=== PATIENT | male | born 1995 | race Caucasian/White ===

== ENCOUNTER → 2022-04-04 09:56 | Outpatient (CLI) | payer OTHER, SELFPAY ==
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
== END ==
PROVIDERS: PCP Nurse Practitioner Family; Visit Provider Nurse Practitioner Family
DX: M25.561 Pain in right knee (principal)
CPT/HCPCS: 73562

== ENCOUNTER → 2022-04-06 11:54 | Outpatient (CLI) | payer OTHER, SELFPAY ==
--- NOTE | 2022-04-06 12:01 | XR_ITS ---
FINAL REPORT CLINICAL HISTORY: OPEN FRACTURE OF LEFT WRIST FINDINGS: LEFT WRIST Three views demonstrate fractures of the distal radius and ulna. A screw plate extends from the 3rd metacarpal to the distal radius. There is some presumed callus formation at the distal radius. The soft tissues are unremarkable. IMPRESSION: Fractures of the distal radius and ulna with some presumed callus formation at the distal radius. Reviewed, Interpreted and Dictated by Tyler Rhodes III, MD Transcribed by Yuki San Authenticated and [facility]
== END ==
PROVIDERS: PCP Family Medicine; Visit Provider Nurse Practitioner Family
DX: S62.102D Fracture of unspecified carpal bone, left wrist, subsequent encounter for fracture with routine healing (principal)
CPT/HCPCS: 73110

== ENCOUNTER 2022-06-20 13:00 | Outpatient (RCR) | payer OTHER, SELFPAY | END 2022-06-20 13:05 | disposition home or self-care (01) | LOC: PT 13:00 | PROVIDERS: PCP Family Medicine; Visit Provider Nurse Practitioner Family | DX: M25.561 Pain in right knee (principal); S32.82XA Multiple fractures of pelvis without disruption of pelvic ring, initial encounter for closed fracture; S52.91XA Unspecified fracture of right forearm, initial encounter for closed fracture | CPT/HCPCS: 97110; 97163; 97164; 97530 ==

== ENCOUNTER 2022-07-04 14:00 | Outpatient (RCR) | payer OTHER, SELFPAY | END 2022-07-04 14:05 | disposition home or self-care (01) | LOC: OT 14:00 | PROVIDERS: PCP Family Medicine; Visit Provider Nurse Practitioner Family | DX: M25.611 Stiffness of right shoulder, not elsewhere classified (principal); S32.82XA Multiple fractures of pelvis without disruption of pelvic ring, initial encounter for closed fracture; S52.91XA Unspecified fracture of right forearm, initial encounter for closed fracture | CPT/HCPCS: 97110; 97140; 97164; 97166 ==

== ENCOUNTER 2022-10-16 14:00 | Outpatient (RCR) | payer OTHER, SELFPAY | END 2022-10-16 15:00 | disposition home or self-care (01) | LOC: OT 14:00 | PROVIDERS: PCP Family Medicine; Visit Provider Orthopaedic Surgery Orthopaedic Trauma | DX: S62.102D Fracture of unspecified carpal bone, left wrist, subsequent encounter for fracture with routine healing (principal); R10.2 Pelvic and perineal pain; M25.532 Pain in left wrist; G89.29 Other chronic pain; M25.531 Pain in right wrist | CPT/HCPCS: 97110; 97140; 97164; 97166; 97530 ==

== ENCOUNTER 2022-10-19 04:11 | Emergency (ER) | payer OTHER, SELFPAY ==
--- NOTE | 2022-10-19 04:16 | PC.NURSE ---
patient in bathroom obtaining urine for specimen collection
[2022-10-19 04:21] VITALS: BP 149/90; PULSE 85; RESP 16; TEMP 36.6; O2SAT 98; BMI 32.5
--- NOTE | 2022-10-19 04:28 | HMH.EDGENADL ---
Discharge Plan Disposition Patient Disposition: Home, Self-Care Condition: Good Prescriptions Prescriptions: New Pepcid Complete 10-800-165 mg tablet,chewable 1 tab PO BID Qty: 60 0RF No Action ondansetron 4 MG tablet,disintegrating 4 mg PO Q8HP PRN (Reason: Nausea) Qty: 20 0RF Referrals Follow up/Referrals: Laura Valadez MD [Primary Care Provider] - See instructions Activity Restrictions/Add. Instructions Additional Instructions/Restrictions: Return the emergency department for worsening pain vomiting or any other concerns within the next 8 hours. Take medicine as needed for abdominal pain. Follow-up with your primary care physician for ultrasound and further testing Clinical Impressions Clinical Impression: Gastritis Instructions Patient Instructions: DI for Acute Abdominal Pain Discharge ED Provider: Tono Bailey General Adult HPI General Chief complaint: Abdominal Pain Stated complaint: Abdominal Pain,N/V Time Seen by Provider: 10/19/22 04:15 Mode of Arrival: Family Vehicle Source of Information: Patient Limitations: No Limitations Description of Symptoms (Recalled from ER Triage Doc. by RN): 32 yo male presents with chief complaint mid-epigastric pain that he describes as intense and stabbing and brought tears to my eyes . PMH includes 'gallbladder flare up'. Last meal was from [employer]. Patient denies any meds or currently treated issues. A small amount of nausea with the pain, but no actual emesis. Afebrile. No contacts. History of Present Illness HPI narrative: 32-year-old male presents with sudden onset epigastric pain tonight. He was feeling well when he went to bed without any pain or any concerns. Has not had fever or chills recently no nausea or vomiting. But then he had sudden onset intense pain to his abdomen. He says that the pain is a lot better now he does have history of gallbladder disease. No dysuria or hematuria. No flank pain no radiation of the pain to his back or anywhere else no chest pain Related Data Previous Rx's Medication Instructions Recorded ondansetron 4 mg disintegrating 4 mg PO Q8HP PRN Nausea ##20 11/01/18 tablet famotidine-Ca carb-mag hydrox 10 1 tab PO BID #60 tabs 10/19/22 mg-800 mg-165 mg chewable tablet (Pepcid Complete) Allergies Allergy/AdvReac Type Severity Reaction Status Date / Time No Known Allergies Allergy Verified 11/01/18 16:12 [facility] Disclaimer: The information contained in this section may have been updated after the patient was seen, as this information can be updated by other users. Social History Smoking Status: Never smoker alcohol intake: never current occupational status: employed Travel in the last 8 weeks: None household members: family ROS Obtained: Yes All systems reviewed & no additional complaints except as documented Constitutional Constitutional: Denies fatigue, Denies fever(s) and Denies headache(s) Eyes Eyes: Denies itchy eyes ENT Ears, Nose, Mouth, and Throat: Denies headache(s) and Denies lip swelling Cardiovascular Cardiovascular: Denies dyspnea Respiratory Respiratory: Denies dyspnea Gastrointestinal Gastrointestingal: Denies diarrhea or hematemesis Genitourinary Male Genitourinary: Denies flank pain Musculoskeletal Musculoskeletal: Denies muscle cramps Integumentary/Breasts Skin/Breast: Denies rash Neurologic Neurologic: Denies headache(s) Endocrine Endocrine: Denies fatigue Hematologic/Lymphatic Henatologic/Lymphatic: Denies easy bleeding Allergic/Immunologic Allergic/Immunologic: Denies itchy eyes and Denies lip swelling Physical Exam General General appearance: alert and in no apparent distress Eye Eye exam: Present PERRL and EOMI ENT ENT exam: Present normal exam and normal oropharynx Neck Neck exam: Present normal inspection Chest Chest inspection: Present symmetric chest wall rise Respiratory Respiratory e
[2022-10-19 04:33] LABS: Basophils # 0.1 K/mm3 (0-0.2); Basophils % 0.8 % (0.1-2.0); Eosinophils # 0.3 K/mm3 (0.0-0.4); Eosinophils % 4.1 % (0.1-12.0); Hematocrit 48.8 % (42.0-52.0); Hemoglobin 15.8 g/dL (14.1-18.0); Lymphocytes # 1.3 K/mm3 (0.7-4.5); Lymphocytes % 21.7 % (10-50); Mean Corpuscular HGB Conc 32.4 g/dL (31.8-35.4); Mean Corpuscular Hemoglobin 28.9 pg (27.0-31.2); Mean Platelet Volume 8.7 fl (7.4-10.4); Monocytes # 0.4 K/mm3 (0.1-1.0); Monocytes % 6.6 % (1.7-9.3); Neutrophils # 4.1 K/mm3 (1.8-7.8); Neutrophils % 66.8 % (37.0-80.0); Platelet Count 200 K/mm3 (142-424); Red Blood Count 5.49 M/mm3 (4.60-6.20); Red Cell Distribution Width 13.5 % (11.5-17.5); White Blood Count 6.2 K/mm3 (4.8-10.8)
[2022-10-19 04:35] LABS: Chloride 108 mmol/L (98-107); Potassium 4.1 mmoL/L (3.5-5.1); Sodium 143 mmol/L (136-145)
[2022-10-19 04:38] LABS: Alanine Aminotransferase 28 U/L (12-78); Albumin Level 4.4 g/dl (3.5-5.0); Albumin/Globulin Ratio 1.3 (1.1-1.8); Alkaline Phosphatase 109 U/L (38-126); Anion Gap 9.1 mEq/L (5-15); Aspartate Amino Transferase 41 U/L (17-59); Bilirubin,Total 0.8 mg/dl (0.2-1.3); Blood Urea Nitrogen 19 mg/dl (9-20); Carbon Dioxide 30 mmol/L (22.0-30.0); Creatinine Clearance Estimated 185 mL/min (50-200); Estimated Glomerular Filt Rate 91 ml/min (>60); GFR (African American) 110 ML/MIN (>60); Globulin 3.5 g/dL (1.3-3.2); Glucose 117 mg/dl (74-100); Lipase 106 U/L (23-300); Total Protein,Serum 7.9 g/dl (6.3-8.2)
[2022-10-19 05:14] VITALS: BP 154/73; PULSE 82; RESP 19; TEMP 36.5; O2SAT 97
== END 2022-10-19 05:18 | disposition home or self-care (01) ==
PROVIDERS: Emergency Provider Emergency Medicine; PCP Family Medicine
DX: K29.70 Gastritis, unspecified, without bleeding (principal); R10.13 Epigastric pain
CPT/HCPCS: 80053; 83690; 85025; 99284

== ENCOUNTER → 2022-10-31 08:40 | Outpatient (CLI) | payer OTHER, SELFPAY ==
--- NOTE | 2022-10-31 08:46 | US_ITS ---
FINAL REPORT CLINICAL HISTORY: RUQ pain FINDINGS: Sonographic images of the right upper quadrant were obtained. The pancreas is partially obscured.The liver has an unremarkable appearance. There are gallstones in the gallbladder. There is no evidence of biliary ductal dilatation.The common duct measures 4mm. The right kidney is unremarkable measuring 11.5 cm. IMPRESSION: Cholelithiasis. Reviewed, Interpreted and Dictated by Tyler Rhodes III, MD Transcribed by Cinthia Holguin Authenticated and [facility]
== END ==
PROVIDERS: PCP Family Medicine; Visit Provider Surgery
DX: R10.11 Right upper quadrant pain (principal)
CPT/HCPCS: 76705

== ENCOUNTER → 2022-11-08 14:28 | Outpatient (CLI) | payer OTHER, SELFPAY ==
[2022-11-08 15:03] LABS: Basophils # 0.1 K/mm3 (0-0.2); Basophils % 0.8 % (0.1-2.0); Eosinophils # 0.2 K/mm3 (0.0-0.4); Eosinophils % 2.9 % (0.1-12.0); Hemoglobin 15.6 g/dL (14.1-18.0); Lymphocytes # 1.4 K/mm3 (0.7-4.5); Lymphocytes % 21.7 % (10-50); Mean Corpuscular HGB Conc 33.2 g/dL (31.8-35.4); Mean Corpuscular Hemoglobin 28.5 pg (27.0-31.2); Mean Corpuscular Volume 85.8 fl (80-94); Monocytes # 0.4 K/mm3 (0.1-1.0); Monocytes % 6.2 % (1.7-9.3); Neutrophils # 4.3 K/mm3 (1.8-7.8); Neutrophils % 68.3 % (37.0-80.0); Platelet Count 216 K/mm3 (142-424); Red Blood Count 5.48 M/mm3 (4.60-6.20); Red Cell Distribution Width 12.8 % (11.5-17.5); White Blood Count 6.3 K/mm3 (4.8-10.8)
[2022-11-08 17:40] LABS: Chloride 102 mmol/L (98-107); Potassium 4.2 mmoL/L (3.5-5.1); Sodium 139 mmol/L (136-145)
[2022-11-08 17:42] LABS: Alanine Aminotransferase 40 U/L (12-78); Alkaline Phosphatase 127 U/L (38-126); Anion Gap 12.2 mEq/L (5-15); Aspartate Amino Transferase 28 U/L (17-59); Bilirubin,Total 0.9 mg/dl (0.2-1.3); Blood Urea Nitrogen 17 mg/dl (9-20); Carbon Dioxide 29 mmol/L (22.0-30.0); Estimated Glomerular Filt Rate 91 ml/min (>60); GFR (African American) 110 ML/MIN (>60)
[2022-11-08 17:43] LABS: Albumin Level 4.7 g/dl (3.5-5.0); Albumin/Globulin Ratio 1.5 (1.1-1.8); Calcium 8.6 mg/dl (8.4-10.2); Globulin 3.1 g/dL (1.3-3.2); Glucose 81 mg/dl (74-100); Total Protein,Serum 7.8 g/dl (6.3-8.2)
== END ==
PROVIDERS: Visit Provider Surgery
DX: Z01.812 Encounter for preprocedural laboratory examination (principal); K80.20 Calculus of gallbladder without cholecystitis without obstruction
CPT/HCPCS: 36415; 80053; 85025

== ENCOUNTER 2022-11-26 08:05 | Day surgery (SDC) | payer OTHER, SELFPAY ==
[2022-11-22 10:30] VITALS: BMI 33.9
[2022-11-26] VITALS (8 sets, daily range): BP systolic 122–149; BP diastolic 65–106; PULSE 54–64; RESP 12–18; TEMP 36.1–43; O2SAT 95–100
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
--- NOTE | 2022-11-26 10:54 | P.PNANES_ITS ---
[facility] Anesthesia Record Part I Anesthesia Record I Intake, IV Amount: 1,800 Estimated blood loss (mL): 0 Urine output (mL): 0 Blood Pressure: 149/106 SaO2: 98 Pulse Rate: 58 Respiratory Rate: 12 Temperature: 97.2 F Patient is:: Awake and Stable Stable to PACU at:: 10:55
[2022-11-29 12:48] VITALS: BP 135/79; PULSE 55; TEMP 36.1
--- NOTE | 2022-11-29 12:48 | P.PNANES_ITS ---
[facility] Anesthesia Record Part II Anesthesia Record Part II Discharge Time: 11:15 Destination: Surgical Day Care (OP Surgery) PACU nurse assessment reviewed?: Yes Patient Condition:: Good Anesthesia Complications:: None Swallowing reflex intact?: Yes Cyanosis?: No Blood Pressure: 135/79 Pulse Rate: 55 Temperature: 97 F Mental Status: Alert & Oriented Pain level:: 0 Nausea and/or vomitting:: None Intake, IV Amount: 0
== END 2022-11-26 11:50 | disposition home or self-care (01) ==
PROVIDERS: PCP Family Medicine; Visit Provider Surgery
PROC: 0FT44ZZ Resection of Gallbladder, Percutaneous Endoscopic Approach (ICD-10-PCS; CPT 47562; principal; 2022-11-26 09:45)
DX: K80.10 Calculus of gallbladder with chronic cholecystitis without obstruction (principal); Z79.899 Other long term (current) drug therapy
CPT/HCPCS: 47562; 96374; J2710